=== PATIENT | female | born 1945 ===

== ENCOUNTER → 2021-09-18 | Outpatient (CLI) | payer SELFPAY | END | disposition home or self-care (01) | LOC: LAB SHORT 11:03 | DX: D22.5 Melanocytic nevi of trunk (principal); L57.0 Actinic keratosis | CPT/HCPCS: 88305 ==

== ENCOUNTER → 2023-10-27 | Outpatient (CLI) | payer MEDICARE | LOC: LAB SHORT 15:17 → LAB 15:17 | DX: D48.5 Neoplasm of uncertain behavior of skin (principal) | CPT/HCPCS: 88305 ==